=== PATIENT | female | born 1995 | race Asian ===

== ENCOUNTER 2017-07-21 10:07 | Emergency (ER) | payer OTHER ==
[~2017-07-21] VITALS: Ht 157.5 cm; Wt 58.4 kg
[2017-07-21 10:09] VITALS: TEMP 36.8; Ht 157.5 cm; Wt 58.4 kg
[2017-07-21] MEDS ORDERED: SODIUM CHLORIDE 0.9% 1000ML 1,000 ML IV STA (11:03)
[2017-07-21] MEDS ORDERED: KETOROLAC TROMETHAMINE 15 MG/ML VIAL IV STA (11:03)
[2017-07-21] MEDS ORDERED: DiphenhydrAMINE HCL 50 MG/ML VIAL IV STA (11:03)
[2017-07-21] MEDS ORDERED: PROCHLORPERAZINE 5 MG/ML 2 ML VIAL IV STA (11:03)
[2017-07-21] MEDS ORDERED: ACET-749 PO (11:04)
[2017-07-21] MEDS ORDERED: AMPH10TA2 PO (11:04)
[2017-07-21] MEDS ORDERED: LISD50CA4 PO (11:04)
--- NOTE | 2017-07-21 11:09 | EMERGENCY ROOM VISIT NOTE ---
History First contact with patient: 10:54 Chief Complaint: HEADACHE Stated Complaint: HEADACHE, STIFF NECK-WISDOM TOOTH PULLED X 2 DAYS History of Present Illness The patient is a 22 year old female who presents to the Emergency Room via private vehicle with complaints of "headache, stiff neck- wisdom tooth pulled 2 days ago". The patient states that she had her left upper wisdom tooth extracted by [facility] or [facility] facial surgeons. She states that this was a successful surgery. She states that she was prescribed acetaminophen and codeine No. 3. She states that on Wednesday, the day of the surgery she took 3 of these and later that evening felt as though she was very itchy as a bugs were crawling on her. She then notes she took one tablet yesterday, and then the headache started. She notes it is in the frontal region, as well as radiating down her neck. She thought maybe was from a caffeine withdrawal, and consume coffee without relief. She states that the pain is persistent, and thought maybe it would go away with sleep last night, but she woke up today and the pain was still there. She rates the pain as an 8-9/10. She has light and sound sensitivity. She rates the head pain as an 8-9/10, and neck as a 5-6/10. She denies any allergies. She denies taking any medications today. She denies any chance of . Review of Systems A complete 10-point Review of Systems was discussed with the patient, with pertinent positives and negatives listed in the History of Present Illness. All remaining Review of Systems questions can be considered negative unless otherwise specified. Past Medical/Surgical History [place] tooth extraction Family History No pertinent. Social History Smoking Status: Never Smoker Patient lives locally. Current/Historical Medications Scheduled Amphetamine-Dextroamphetamine 10MG (Adderall 10MG), 10 MG PO DAILY Lisdexamfetamine Dimesylate (Vyvanse), 50 MG PO DAILY Scheduled PRN Acetaminophen/Codeine (Tylenol W/Codeine #3), 1 TAB PO Q4 PRN for Pain Physical Exam Vital Signs Date Time Temp Pulse Resp B/P (MAP) Pulse Ox O2 Delivery O2 Flow Rate FiO2 07/21/17 11:38 65 18 99 07/21/17 11:34 103/62 07/21/17 11:08 81 100 07/21/17 11:01 102/81 07/21/17 10:53 64 99 07/21/17 10:38 63 97 07/21/17 10:31 104/68 07/21/17 10:23 67 99 07/21/17 10:18 16 96/65 07/21/17 10:17 69 98 Room Air 07/21/17 10:09 36.8 73 18 110/73 97 Room Air Physical Exam VITAL SIGNS - Vital signs and nursing notes were reviewed. Stable. GENERAL -22-year-old female appearing her stated age who is in no acute distress. Communicates well with provider and answers questions appropriately. SKIN - Without rashes. No petechial or meningeal rash. HEAD - NC/AT. EYES - PERRL with EOMI bilaterally. Sclera anicteric. No hyphema. EARS - No deformities of external structures noted on gross examination bilaterally. No pain elicited with palpation of the tragus bilaterally. External auditory canals without discharge or otorrhea. Tympanic membranes pearly patterson without retraction or bulging. No fluid or purulent material visualized behind the TM. Handle of malleus, umbo, cone of light, pars tensa/ flaccid all easily visualized. No hemotympanum. NOSE - Midline and without cyanosis. No epistaxis or purulent drainage noted. Septum midline without deviation or septal hematoma noted. MOUTH/OROPHARYNX - Without perioral cyanosis. Buccal mucosa pink and moist and without leukoplakia. Tongue midline with equal elevation of palate bilaterally. No tonsillar hypertrophy, erythema, or exudates noted. Fair dentition noted. The left upper socket where the wisdom tooth was extracted from his in good repair. There is no drainage, excessive erythema or edema. NECK - Neck with FROM. Supple to palpation. No lymphadenopathy noted. No nuchal rigidity. No meningismus. LUNGS - Chest wall symmetric without accessory muscle use, intercostals retractions, or central cyanosis. Normal vesicular breath sounds CTA B/L. No wheezes, rales, or rhonchi appreciated. CARDIAC - RRR with S1/S2. No murmur, rubs, or gallops appreciated. EXTREMITIES - No clubbing or peripheral cyanosis. No pretibial edema present. She is neurovascularly intact in the extremities. +5/5 strength noted in UE/LE bilaterally. NEUROLOGIC - Cranial nerves II through XII grossly intact. Sensory intact to light touch throughout. PSYCH - A&Ox3 and cooperates fully with examiner. Pt is very pleasant and interacts well with examiner. Medical Decision & Procedures Laboratory Results 07/21/17 11:15 Red Blood Count 4.72, Mean Corpuscular Volume 87.7, Mean Corpuscular Hemoglobin 29.7, Mean Corpuscular Hemoglobin Concent 33.8, Mean Platelet Volume 9.1, Neutrophils (%) (Auto) 53.6, Lymphocytes (%) (Auto) 38.6, Monocytes (%) (Auto) 6.0, Eosinophils (%) (Auto) 0.8, Basophils (%) (Auto) 0.8, Neutrophils # (Auto) 2.58, Lymphocytes # (Auto) 1.86, Monocytes # (Auto) 0.29, Eosinophils # (Auto) 0.04, Basophils # (Auto) 0.04 07/21/17 11:15 Test 07/21/17 11:15 07/21/17 11:25 White Blood Count 4.82 K/uL (4.8-10.8) Red Blood Count 4.72 M/uL (4.2-5.4) Hemoglobin 14.0 g/dL (12.0-16.0) Hematocrit 41.4 % (37-47) Mean Corpuscular Volume 87.7 fL (80-100) Mean Corpuscular Hemoglobin 29.7 pg (25-34) Mean Corpuscular Hemoglobin Concent 33.8 g/dl (32-36) Platelet Count 257 K/uL (130-400) Mean Platelet Volume 9.1 fL (7.4-10.4) Neutrophils (%) (Auto) 53.6 % Lymphocytes (%) (Auto) 38.6 % Monocytes (%) (Auto) 6.0 % Eosinophils (%) (Auto) 0.8 % Basophils (%) (Auto) 0.8 % Neutrophils # (Auto) 2.58 K/uL (1.4-6.5) Lymphocytes # (Auto) 1.86 K/uL (1.2-3.4) Monocytes # (Auto) 0.29 K/uL (0.11-0.59) Eosinophils # (Auto) 0.04 K/uL (0-0.5) Basophils # (Auto) 0.04 K/uL (0-0.2) RDW Standard Deviation 41.8 fL (36.4-46.3) RDW Coefficient of Variation 12.9 % (11.5-14.5) Immature Granulocyte % (Auto) 0.2 % Immature Granulocyte # (Auto) 0.01 K/uL (0.00-0.02) Anion Gap 5.0 mmol/L (3-11) Est Creatinine Clear Calc Drug Dose 89.9 ml/min Estimated GFR () 124.9 Estimated GFR (Non- 107.8 BUN/Creatinine Ratio 12.6 (10-20) Calcium Level 8.8 mg/dl (8.5-10.1) Magnesium Level 2.4 mg/dl (1.8-2.4) Total Bilirubin 0.7 mg/dl (0.2-1) Aspartate Amino Transf (AST/SGOT) 14 U/L (15-37) Alanine Aminotransferase (ALT/SGPT) 11 U/L (12-78) Alkaline Phosphatase 72 U/L (45-117) Total Protein 7.7 gm/dl (6.4-8.2) Albumin 3.9 gm/dl (3.4-5.0) Globulin 3.8 gm/dl (2.5-4.0) Albumin/Globulin Ratio 1.0 (0.9-2) Urine Color YELLOW Urine Appearance CLEAR (CLEAR) Urine pH 8.0 (4.5-7.5) Urine Specific Mobile 1.008 (1.000-1.030) Urine Protein NEG (NEG) Urine Glucose (UA) NEG (NEG) Urine Ketones NEG (NEG) Urine Occult Blood NEG (NEG) Urine Nitrite NEG (NEG) Urine Bilirubin NEG (NEG) Urine Urobilinogen NEG (NEG) Urine Leukocyte Esterase NEG (NEG) Urine Test NEG (NEG) Medications Administered Medications (Trade) Dose Ordered Sig/Bela Route Start Time Stop Time Status Last Admin Dose Admin Sodium Chloride 1,000 ml @ 999 mls/hr Q1H1M STAT IV 07/21/17 11:03 07/21/17 12:03 DC 07/21/17 11:33 999 MLS/HR Ketorolac Tromethamine (Toradol Inj) 15 mg NOW STAT IV 07/21/17 11:03 07/21/17 11:04 DC 07/21/17 11:36 15 MG Diphenhydramine HCl (Benadryl Inj) 25 mg NOW STAT IV 07/21/17 11:03 07/21/17 11:04 DC 07/21/17 11:41 25 MG Prochlorperazine Edisylate (Compazine Inj) 5 mg NOW STAT IV 07/21/17 11:03 07/21/17 11:04 DC 07/21/17 11:38 5 MG Medical Decision Patient was seen and evaluated as above. She presents to us today status post wisdom teeth extraction 2 days ago, and notes that she took a Tylenol with Codeine experienced dizziness, followed by headache. She states this is unlike any headache she has had before. Because there appears to be an inciting cause of this, she has no neurologic deficit on exam, and is afebrile I suspect she is most likely either experiencing a reaction to the codeine, or perhaps pain related to the trauma from the wisdom tooth extraction. She is well on exam, and nontoxic in appearance. She converses well without difficulty. We initiated fluids, as well as Toradol, Benadryl and Compazine. She indicated she had nothing today medication-mcgraw. I do not believe that a lumbar puncture is warranted, I do not believe that a CT scan of the head is warranted as the risks outweigh the benefits. Again, given the patient has had an inciting event such as a new medication being the Tylenol with codeine, as well as the wisdom tooth extraction I believe that these are likely the etiologies and do not believe infectious to be the source. The patient was then reevaluated and noted that her headache was nonexistent. Neck pain was also gone. She appears stable for outpatient management. Case was discussed with the attending physician, I believe is important to note that I do not believe she is experiencing any meningitis, encephalitis or emergent process on exam. Her blood work is unremarkable. No leukocytosis, no anemia, no evidence of kidney or liver failure. She was educated upon management. She is instructed to follow-up with [facility], and Dr. Forrester, her oromaxillary facial surgeon, educated upon worrisome symptoms in which to return, had questions answered prior to discharge, and was discharged home in good condition. I suspect she is likely experiencing an adverse reaction to codeine , she is told to list this as an allergy now. In the evaluation and treatment of this patient, the following differential diagnoses were considered: Concussion, Contrecoup Injury, Brain Tumor, Depression, Encephalitis, Hypothyroidism, Meningitis, CVA, TIA, Migraine, Cluster Headache, Intracranial Abnormality, Intracranial Hemorrhage, Subdural Hematoma, Subarachnoid Hemorrhage, Hydrocephalus. Impression Primary Impression: Headache Additional Impression: Medication reaction Departure Information Dispostion Home / Self-Care Condition GOOD Referrals No Doctor, Assigned (PCP) Patient Instructions My [facility] Additional Instructions You have been treated in the Emergency Department for a Headache. You have received pain medicine in the emergency department which impairs your ability to operate a vehicle. It is illegal for you to drive after receiving these medicines. For pain control, you can use the following [id number] medicines (if >12 yo): - Regular strength (325mg/tab) Tylenol (acetaminophen) 2 tabs every 4-6 hours as needed. Do not exceed 12 tablets in a 24 hour period. Avoid taking more than 3 grams (3000 mg) of Tylenol per day. This includes any other sources of acetaminophen you may take on a regular basis. - Regular strength (200 mg/tab) Advil (ibuprofen) 1-2 tabs every 4-6 hours as needed. Do not exceed a dose of 3200 mg per day. You should relax in a quiet, dark place for the rest of the day. Avoid any possible triggers including: cigarette smoke, caffeine, nicotine, chocolate, wine, beer, loud noises or music, or bright lights. You should schedule a follow-up appointment in 2-3 days with your Primary Care Provider in the oral surgeon who performed the surgery. Return to the Emergency Department if your current symptoms worsen despite treatment course outlined above, or if you develop any of the following symptoms : intractable pain despite aforementioned treatment course, visual disturbances , loss of vision, unilateral weakness or facial drooping, slurring of speech, loss of coordination, or loss of consciousness. Please return with any new/concerning symptoms. Problem Qualifiers
[2017-07-21] MEDS ORDERED: KETOROLAC TROMETHAMINE 30 MG/ML VIAL ONE (11:24)
[2017-07-21 11:31] LABS: BASO % 0.8 %; BASO ABS # 0.04 K/uL (0-0.2); COMPLETE YES; EOS % 0.8 %; HEMATOCRIT 41.4 % (37-47); IG% 0.2 %; LYMPH % 38.6 %; LYMPH ABS # 1.86 K/uL (1.2-3.4); MEAN CELL VOLUME 87.7 fL (80-100); MEAN CORPUSCULAR HEMOGLOBIN 29.7 pg (25-34); MEAN CORPUSCULAR HGB CONC 33.8 g/dl (32-36); MEAN PLATELET VOLUME 9.1 fL (7.4-10.4); NEUT % 53.6 %; PLATELET COUNT 257 K/uL (130-400); RED BLOOD COUNT 4.72 M/uL (4.2-5.4); WHITE BLOOD COUNT 4.82 K/uL (4.8-10.8)
[2017-07-21 11:41] LABS: URINE APPEARANCE CLEAR (CLEAR); URINE BILIRUBIN NEG (NEG); URINE COLOR YELLOW; URINE NITRITE NEG (NEG); URINE SPECIFIC GRAVITY 1.008 (1.000-1.030); UROBILINOGEN NEG (NEG); ZZUR CULT IF INDIC CLEAN CATCH NO
[2017-07-21 11:43] LABS: BUN/CREATININE RATIO 12.6 (10-20); CALCIUM 8.8 mg/dl (8.5-10.1); CREATININE 0.79 mg/dl (0.60-1.20); MAGNESIUM 2.4 mg/dl (1.8-2.4); POTASSIUM 3.8 mmol/L (3.5-5.1)
[2017-07-21 11:47] LABS: MANUAL MICROSCOPIC REQUIRED? NO; REVIEW REQ? NO
[2017-07-21 11:58] VITALS: PULSE 59; O2SAT 100
[2017-07-21 12:01] VITALS: BP 92/56
== END 2017-07-21 12:21 | disposition home or self-care (01) ==
LOC: C.EDB 10:09 → C.EDA 12:21
DX: R51 Headache (principal); T88.7XXA Unspecified adverse effect of drug or medicament, initial encounter; X58.XXXA Exposure to other specified factors, initial encounter; Z79.899 Other long term (current) drug therapy; Z98.890 Other specified postprocedural states